=== PATIENT | male | born 1975 | race Caucasian/White ===

== ENCOUNTER 2017-12-14 14:35 | Emergency (ER) | payer MEDICAID ==
--- NOTE | 2017-12-14 15:57 | EDM.PDOC ---
ED HPI GENERAL MEDICAL PROBLEM - General Chief Complaint: Genitourinary Problem Stated Complaint: TROUBLE URINATING Time Seen by Provider: 12/14/17 15:00 Source of Information: Reports: Patient History Limitations: Reports: No Limitations - History of Present Illness INITIAL COMMENTS - FREE TEXT/NARRATIVE: 42 y/o M with hx prior urinary outlet obstruction presents with inability to urinate for over a day. Has suprapubic pain. No additional complaint. No provoking factor. Had similar episode previously which resolved after attempted (but unsuccessful) gross placement at outside clinic. Has never had indwelling catheter. No fever or recent illness. No vomiting/diarrhea. No dysuria/ hematuria this week. Hasn't seen a urologist previously. Bladder Pain Score (Numeric/FACES): 8 - Related Data Allergies Allergy/AdvReac Type Severity Reaction Status Date / Time No Known Allergies Allergy Verified 12/14/17 14:49 Home Meds: Home Meds Tamsulosin [Flomax] 0.4 mg PO DAILY 12/14/17 [History] Past Medical History Genitourinary History: Reports: Retention, Urinary Social & Family History - Tobacco Use Smoking Status *Q: Never Smoker - Caffeine Use Caffeine Use: Reports: Soda - Recreational Drug Use Recreational Drug Use: No ED ROS GENERAL - Review of Systems Review Of Systems: See Below Constitutional: Denies: Fever HEENT: Reports: No Symptoms Respiratory: Denies: Shortness of Breath Cardiovascular: Denies: Chest Pain Endocrine: Reports: No Symptoms GI/Abdominal: Reports: Abdominal Pain : Reports: Urinary Retention Musculoskeletal: Reports: No Symptoms Neurological: Reports: No Symptoms ED EXAM, RENAL/ - Physical Exam Exam: See Below Exam Limited By: No Limitations General Appearance: Alert, Mild Distress Eye Exam: Bilateral Eye: Normal Inspection Ears: Normal External Exam Nose: Normal Inspection Throat/Mouth: Normal Inspection Head: Atraumatic, Normocephalic Neck: Normal Inspection, Supple, Non-Tender Respiratory/Chest: No Respiratory Distress, Lungs Clear, Normal Breath Sounds Cardiovascular: Normal Peripheral Pulses, Regular Rate, Rhythm, No Murmur GI/Abdominal: Soft, Other (suprapubic TTP, otherwise nontender, no guarding) Back Exam: No: CVA Tenderness (L), CVA Tenderness (R) Extremities: Normal Inspection Neurological: Alert, Oriented, Normal Cognition Psychiatric: Normal Affect, Normal Mood Skin Exam: Warm, Dry, Intact, Normal Color, No Rash Course - Vital Signs Last Recorded V/S: Last Vital Signs Temp 36.3 C 12/14/17 14:45 Pulse 126 H 12/14/17 14:45 Resp 16 12/14/17 14:45 BP 115/87 12/14/17 14:45 Pulse Ox 97 12/14/17 14:45 - Orders/Labs/Meds Orders: Active Orders 24 hr Category Date Time Status Communication Order [RC] STAT Care 12/14/17 15:25 Active Urinary Catheter Assessment [RC] ASDIRECTED Care 12/14/17 15:05 Inactive Labs: Laboratory Tests 12/14/17 12/14/17 12/14/17 Range/Units 15:20 15:20 16:00 WBC 4.91 (4.23-9.07) K/mm3 RBC 5.08 (4.63-6.08) M/mm3 Hgb 17.0 (13.7-17.5) gm/L Hct 47.3 (40.1-51.0) % MCV 93.1 H (79.0-92.2) fl MCH 33.5 H (25.7-32.2) pg MCHC 35.9 H (32.2-35.5) g/dl RDW Std Deviation 43.4 (35.1-43.9) fL Plt Count 226 (163-337) K/mm3 MPV 9.6 (9.4-12.3) fl Neut % (Auto) 57.5 (34.0-67.9) % Lymph % (Auto) 24.2 (21.8-53.1) % [place] % (Auto) 7.5 (5.3-12.2) % Eos % (Auto) 9.6 H (0.8-7.0) Baso % (Auto) 1.0 (0.1-1.2) % Neut # (Auto) 2.82 (1.78-5.38) K/mm3 Lymph # (Auto) 1.19 L (1.32-3.57) K/mm3 [place] # (Auto) 0.37 (0.30-0.82) K/mm3 Eos # (Auto) 0.47 (0.04-0.54) K/mm3 Baso # (Auto) 0.05 (0.01-0.08) K/mm3 Sodium 140 (136-145) mEq/L Potassium 4.3 (3.5-5.1) mEq/L Chloride 104 (98-107) mEq/L Carbon Dioxide 28 (21-32) mEq/L Anion Gap 12.3 (5-15) BUN 14 (7-18) mg/dL Creatinine 1.5 H (0.7-1.3) mg/dL Est Cr Clr Drug Dosing 66.93 mL/min Estimated GFR (MDRD) 51 (>60) mL/min BUN/Creatinine Ratio 9.3 L (14-18) Glucose 107 H (74-106) mg/dL Calcium 8.9 (8.5-10.1) mg/dL Total Bilirubin 0.7 (0.2-1.0) mg/dL AST 11 L (15-37) U/L ALT 27 (16-63) U/L Alkaline Phosphatase 83 (46-116) U/L Total Protein 7.1 (6.4-8.2) g/dl Albumin 3.9 (3.4-5.0) g/dl Globulin 3.2 gm/dL Albumin/Globulin Ratio 1.2 (1-2) Urine Color Yellow (Yellow) Urine Appearance Clear (Clear) Urine pH 6.0 (5.0-8.0) Ur Specific [place] 1.025 (1.005-1.030) Urine Protein 1+ H (Negative) Urine Glucose (UA) Negative (Negative) Urine Ketones Negative (Negative) Urine Occult Blood Negative (Negative) Urine Nitrite Negative (Negative) Urine Bilirubin Negative (Negative) Urine Urobilinogen 1.0 (0.2-1.0) Ur Leukocyte Esterase Negative (Negative) Urine RBC 0-5 (0-5) /hpf Urine WBC 5-10 H (0-5) /hpf Ur Epithelial Cells 0-5 (0-5) /hpf Urine Bacteria Not seen (FEW) /hpf Urine Mucus Not seen (FEW) /hpf - Re-Assessments/Exams Free Text/Narrative Re-Assessment/Exam: 12/14/17 17:50 Feels much better after straight cath. Refuses gross. Wants to go home. Discussed return precautions for any ongoing difficulty urinating. Labs show creatinine 1.5, UA not infected. Recommended f/u with urology this week adn also PCP f/u. 12/14/17 17:50 Departure - Departure Time of Disposition: 16:28 Disposition: Home, Self-Care 01 Clinical Impression: Acute urinary obstruction - Discharge Information Instructions: Acute Urinary Retention, Male, [id number] Referrals: PCP,None [Primary Care Provider] - Forms: ED Department Discharge Additional Instructions: 1. Continue to take tamsulosin (flomax) 2. Follow up with Dr. Mendez this week for further care 3. Return to the ED if you have another episode of not being able to urinate, if you have fever, abdominal pain, or any other concerning symptoms - My Orders Last 24 Hours: My Active Orders 12/14/17 15:05 Urinary Catheter Assessment [RC] ASDIRECTED 12/14/17 15:25 Communication Order [RC] STAT - Assessment/Plan Last 24 Hours: My Active Orders 12/14/17 15:05 Urinary Catheter Assessment [RC] ASDIRECTED 12/14/17 15:25 Communication Order [RC] STAT
== END 2017-12-14 16:40 | disposition home or self-care (01) ==
LOC: JD.ED 14:35
DX: N13.9 Obstructive and reflux uropathy, unspecified (principal); Z79.899 Other long term (current) drug therapy
CPT/HCPCS: 36415; 51701; 80053; 81001; 85025; 99283; 99283-25

== ENCOUNTER 2018-02-14 14:17 | Emergency (ER) | payer MEDICAID ==
[2018-02-14] MEDS ORDERED: Ondansetron 4 MG/2 ML SDV IVPUSH ONE (14:30)
[2018-02-14] MEDS ORDERED: Sodium Chloride 0.9% 1,000 ML IV STA (14:30)
[2018-02-14] MEDS ORDERED: Sodium Chloride 0.9% 10 ML Syringe FLUSH PRN ×2 (14:30→16:37)
[2018-02-14] MEDS ORDERED: HYDROmorphone 0.5 MG/0.5 ML SYRINGE IVPUSH ONE (14:31)
--- NOTE | 2018-02-14 14:39 | EDM.PDOC ---
ED HPI GENERAL MEDICAL PROBLEM - General Chief Complaint: Gastrointestinal Problem Stated Complaint: [facility] Time Seen by Provider: 02/14/18 14:22 Source of Information: Reports: Patient, EMS History Limitations: Reports: No Limitations - History of Present Illness INITIAL COMMENTS - FREE TEXT/NARRATIVE: The patient presents by [facility] for nausea, vomiting, generalized abdominal pain, rectal pain and diarrhea. This all started last week with abdominal pain. He saw Dr Garcia and he did some x-rays and he was constipated. The patient has been doing a stool softener and he did an enema yesterday. He has had cramping and diarrhea and now rectal pain. He vomited yesterday. He has generalized weakness. He has no fever but he does have chills. He has no chest pain or shortness of breath. He had a cholecystectomy 3 years ago. He still has his appendix. He has been having trouble urinating lately and he is on flomax. Onset: Gradual Duration: Day(s): (4) Location: Reports: Abdomen Quality: Reports: Other (Cramping) Severity: Moderate Improves with: Reports: None Worsens with: Reports: None Associated Symptoms: Reports: Fever/Chills, Loss of Appetite, Nausea/Vomiting. Denies: Confusion, Chest Pain, Cough, Headaches, Shortness of Breath Rectal Pain Score (Numeric/FACES): 6 - Related Data Allergies Allergy/AdvReac Type Severity Reaction Status Date / Time No Known Allergies Allergy Verified 02/14/18 14:23 Home Meds: Home Meds Tamsulosin [Flomax] 0.4 mg PO DAILY 12/14/17 [History] KCl/Na Sulf,Bicarb,Cl/PEG 3351 [GoLytely] 4 oz PO BID #1 bottle 02/14/18 [Rx] Metoclopramide HCl [Reglan] 10 mg PO Q6HR PRN #20 tablet 02/14/18 [Rx] Past Medical History Genitourinary History: Reports: Retention, Urinary Social & Family History - Caffeine Use Caffeine Use: Reports: Soda ED ROS GENERAL - Review of Systems Review Of Systems: See Below Constitutional: Reports: Chills, Malaise, Weakness, Fatigue. Denies: Fever HEENT: Reports: No Symptoms Respiratory: Reports: No Symptoms Cardiovascular: Reports: No Symptoms Endocrine: Reports: Fatigue GI/Abdominal: Reports: Abdominal Pain, Diarrhea, Nausea, Vomiting, Other ( Rectal pain). Denies: Black Stool, Bloody Stool : Reports: No Symptoms Musculoskeletal: Reports: No Symptoms ED EXAM, GI/ABD - Physical Exam Exam: See Below Exam Limited By: No Limitations General Appearance: Alert, No Apparent Distress Ears: Normal External Exam Nose: Normal Inspection Throat/Mouth: Other (Dry mucus membranes) Head: Atraumatic, Normocephalic Neck: Normal Inspection Respiratory/Chest: No Respiratory Distress, Lungs Clear, Normal Breath Sounds Cardiovascular: Regular Rate, Rhythm, No Edema, No Murmur GI/Abdominal Exam: Soft, No Organomegaly, No Mass, Tender (Mild tenderness to the lower abdomen) Course - Vital Signs Last Recorded V/S: Last Vital Signs Temp 100.1 F 02/14/18 14:17 Pulse 91 02/14/18 15:23 Resp 16 02/14/18 15:23 BP 108/76 02/14/18 15:23 Pulse Ox 91 L 02/14/18 15:23 - Orders/Labs/Meds Orders: Active Orders 24 hr Category Date Time Status Enema [RC] ASDIRECTED Care 02/14/18 17:50 Active Insert Gross Catheter [Insert Urinary Catheter] [OM.PC] Care 02/14/18 15:10 Ordered Q24H Peripheral IV Care [RC] . DIRECTED Care 02/14/18 14:30 Active Urinary Catheter Assessment [RC] ASDIRECTED Care 02/14/18 15:10 Active Abdomen Pelvis w Cont [CT] Stat Exams 02/14/18 14:30 Taken CULTURE URINE [RM] Stat Lab 02/14/18 15:15 Received UA W/MICROSCOPIC [URIN] Stat Lab 02/14/18 15:15 Ordered Sodium Chloride 0.9% [Saline Flush] Med 02/14/18 14:30 Active 10 ml FLUSH ASDIRECTED PRN Sodium Chloride 0.9% [Saline Flush] Med 02/14/18 16:37 Active 10 ml FLUSH ONETIME PRN ED Antiemetic Medication Reflex [OM.PC] Stat Oth 02/14/18 14:30 Ordered Peripheral IV Insertion Adult [OM.PC] Stat Oth 02/14/18 14:30 Ordered Medication Orders Sodium Chloride (Saline Flush) 10 ml FLUSH ASDIRECTED PRN PRN Reason: Keep Vein Open Last Admin: 02/14/18 14:50 Dose: 10 ml Sodium Chloride (Saline Flush) 10 ml FLUSH ONETIME PRN PRN Reason: IV FLUSH Last Admin: 02/14/18 16:51 Dose: 10 ml Labs: Laboratory Tests 02/14/18 02/14/18 02/14/18 Range/Units 15:10 15:10 15:15 WBC 8.07 (4.23-9.07) K/mm3 RBC 5.11 (4.63-6.08) M/mm3 Hgb 17.0 (13.7-17.5) gm/L Hct 46.9 (40.1-51.0) % MCV 91.8 (79.0-92.2) fl MCH 33.3 H (25.7-32.2) pg MCHC 36.2 H (32.2-35.5) g/dl RDW Std Deviation 42.1 (35.1-43.9) fL Plt Count 225 (163-337) K/mm3 MPV 10.0 (9.4-12.3) fl Neut % (Auto) 81.6 H (34.0-67.9) % Lymph % (Auto) 6.2 L (21.8-53.1) % [place] % (Auto) 11.5 (5.3-12.2) % Eos % (Auto) 0.5 L (0.8-7.0) Baso % (Auto) 0.1 (0.1-1.2) % Neut # (Auto) 6.58 H (1.78-5.38) K/mm3 Lymph # (Auto) 0.50 L (1.32-3.57) K/mm3 [place] # (Auto) 0.93 H (0.30-0.82) K/mm3 Eos # (Auto) 0.04 (0.04-0.54) K/mm3 Baso # (Auto) 0.01 (0.01-0.08) K/mm3 Manual Slide Review Normal smear Sodium 135 L (136-145) mEq/L Potassium 3.7 (3.5-5.1) mEq/L Chloride 104 (98-107) mEq/L Carbon Dioxide 19 L (21-32) mEq/L Anion Gap 15.7 H (5-15) BUN 15 (7-18) mg/dL Creatinine 1.2 (0.7-1.3) mg/dL Est Cr Clr Drug Dosing 83.67 mL/min Estimated GFR (MDRD) > 60 (>60) mL/min BUN/Creatinine Ratio 12.5 L (14-18) Glucose 125 H (74-106) mg/dL Calcium 8.2 L (8.5-10.1) mg/dL Total Bilirubin 2.1 H (0.2-1.0) mg/dL AST 17 (15-37) U/L ALT 25 (16-63) U/L Alkaline Phosphatase 82 (46-116) U/L Total Protein 6.5 (6.4-8.2) g/dl Albumin 3.4 (3.4-5.0) g/dl Globulin 3.1 gm/dL Albumin/Globulin Ratio 1.1 (1-2) Lipase 62 L (73-393) U/L Urine Color [place] H (Yellow) Urine Appearance Clear (Clear) Urine pH 5.5 (5.0-8.0) Ur Specific [place] 1.025 (1.005-1.030) Urine Protein 2+ H (Negative) Urine Glucose (UA) Trace H (Negative) Urine Ketones 1+ H (Negative) Urine Occult Blood Negative (Negative) Urine Nitrite Positive H (Negative) Urine Bilirubin 3+ H (Negative) Urine Urobilinogen >=8.0 H (0.2-1.0) Ur Leukocyte Esterase Negative (Negative) Urine RBC Not seen (0-5) /hpf Urine WBC 0-5 (0-5) /hpf Ur Epithelial Cells 0-5 (0-5) /hpf Amorphous Sediment Few H (NOT SEEN) /hpf Urine Bacteria Few (FEW) /hpf Hyaline Casts 0-5 (0-5) /lpf Urine Mucus Few (FEW) /hpf Meds: Medications Generic Name Dose Route Start Last Admin Trade Name Freq PRN Reason Stop Dose Admin Sodium Chloride 10 ml 02/14/18 14:30 02/14/18 14:50 Saline Flush FLUSH 10 ml ASDIRECTED PRN Administration Keep Vein Open Sodium Chloride 10 ml 02/14/18 16:37 02/14/18 16:51 Saline Flush FLUSH 10 ml ONETIME PRN Administration IV FLUSH Discontinued Medications Generic Name Dose Route Start Last Admin Trade Name Freq PRN Reason Stop Dose Admin Diatrizoate Meglum/Diatrizoate Sod 120 ml 02/14/18 16:37 02/14/18 16:51 Gastrografin 37% PO 02/14/18 16:38 90 ml ONETIME ONE Administration Hydromorphone HCl 1 mg 02/14/18 14:31 02/14/18 14:55 Dilaudid IVPUSH 02/14/18 14:32 1 mg ONETIME ONE Administration Sodium Chloride 1,000 mls @ 1,000 mls/hr 02/14/18 14:30 02/14/18 14:55 Normal Saline IV 02/14/18 15:29 1,000 mls/hr .BOLUS STA Administration Sodium Chloride 1,000 mls @ 1,000 mls/hr 02/14/18 15:33 Normal Saline IV 02/14/18 16:32 ONETIME ONE Iopamidol 100 ml 02/14/18 16:37 02/14/18 16:51 Isovue-300 (61%) IVPUSH 02/14/18 16:38 100 ml ONETIME ONE Administration Ondansetron HCl 4 mg 02/14/18 14:30 02/14/18 14:57 Zofran IVPUSH 02/14/18 14:31 4 mg ONETIME ONE Administration - Re-Assessments/Exams Free Text/Narrative Re-Assessment/Exam: 02/14/18 14:39 I ordered an IV NS 1L bolus, zofran 4mg IV, dilaudid 1mg IV, labs, UA and a CT of his abdomen and pelvis for lower abdominal pain. 02/14/18 18:02 His CBC looks good with a normal WBC. His Na is a little low at 135. His anion gap is elevated at 15.7. His glucose is 125. His total bili is 2.1. His lipase is low at 62. He was retaining about 1L of urine. We put a gross cath in and his UA was positive for nitrites but no WBCs or bacteria. His CT shows moderate to severe fecal stasis, mild colitis involving the rectosigmoid colon, and no free air or gross visceromegaly. I called Dr Flores our general surgeon and he recommended we do an enema here and then send him home with the [facility] for colonoscopy. He recommends 4 ounces 2 times per day for a week or until gone. He also wanted the patient to do a fleets enema every other day. 02/14/18 18:54 He had some output but it was mostly watery with stool. I will discharge him home with some golytly and fleets enemas. Departure - Departure Time of Disposition: 18:55 Disposition: Home, Self-Care 01 Condition: Good Clinical Impression: Constipation Qualifiers: Constipation type: other constipation type Qualified Code(s): K59.09 - Other constipation - Discharge Information Prescriptions: Metoclopramide HCl [Reglan] 10 mg PO Q6HR PRN #20 tablet PRN Reason: Nausea/Vomiting KCl/Na Sulf,Bicarb,Cl/PEG 3351 [GoLytely] 4 oz PO BID #1 bottle Referrals: Jb Garcia MD [Primary Care Provider] - 3 Days Forms: ED Department Discharge Additional Instructions: Drink plenty of fluids. Take the golytly 4 ounces or 1/2 cup 2 times per day for 1 week and fleets enemas every other day. Please return if you are worse. - My Orders Last 24 Hours: My Active Orders 02/14/18 14:30 Peripheral IV Care [RC] . DIRECTED Abdomen Pelvis w Cont [CT] Stat Sodium Chloride 0.9% [Saline Flush] 10 ml FLUSH ASDIRECTED PRN ED Antiemetic Medication Reflex [OM.PC] Stat Peripheral IV Insertion Adult [OM.PC] Stat 02/14/18 15:10 Insert Gross Catheter [Insert Urinary Catheter] [OM.PC] Q24H Urinary Catheter Assessment [RC] ASDIRECTED 02/14/18 15:15 CULTURE URINE [] Stat UA W/MICROSCOPIC [URIN] Stat 02/14/18 16:37 Sodium Chloride 0.9% [Saline Flush] 10 ml FLUSH ONETIME PRN 02/14/18 17:50 Enema [RC] ASDIRECTED - Assessment/Plan Last 24 Hours: My Active Orders 02/14/18 14:30 Peripheral IV Care [RC] . DIRECTED Abdomen Pelvis w Cont [CT] Stat Sodium Chloride 0.9% [Saline Flush] 10 ml FLUSH ASDIRECTED PRN ED Antiemetic Medication Reflex [OM.PC] Stat Peripheral IV Insertion Adult [OM.PC] Stat 02/14/18 15:10 Insert Gross Catheter [Insert Urinary Catheter] [OM.PC] Q24H Urinary Catheter Assessment [RC] ASDIRECTED 02/14/18 15:15 CULTURE URINE [RM] Stat UA W/MICROSCOPIC [URIN] Stat 02/14/18 16:37 Sodium Chloride 0.9% [Saline Flush] 10 ml FLUSH ONETIME PRN 02/14/18 17:50 Enema [RC] ASDIRECTED
[2018-02-14] MEDS ORDERED: Sodium Chloride 0.9% 1,000 ML IV ONE (15:33)
[2018-02-14] MEDS ORDERED: Iopamidol 612 MG/ML 100 ML Bottle IVPUSH ONE (16:37)
[2018-02-14] MEDS ORDERED: Diatrizoate Meglumine/Diatrizoate Sodium 37% 120 ML Bottle PO ONE (16:37)
--- NOTE | 2018-02-16 08:31 | CT ---
CT abdomen and pelvis Technique: Multiple axial sections were obtained from above the dome of the diaphragm inferiorly through the pubic symphysis. Oral contrast and intravenous contrast was utilized. Comparison: No prior abdominal imaging. Findings: Visualized lung bases show nothing acute. Liver shows no focal parenchymal abnormality. Surgical clips are seen from prior cholecystectomy. Spleen appears within normal limits. Adrenal glands show no nodule. Kidneys show symmetric contrast enhancement without hydronephrosis or mass. Pancreas is within normal limits. Aorta shows no aneurysmal dilatation. No retroperitoneal adenopathy or mesenteric abnormalities are seen. Appendix appears normal. Increased stool is identified within the rectosigmoid region. Lesser stool is seen throughout the other portions of the colon. There is mild wall thickening being seen within the sigmoid colon which may relate to the increased stool and represents a mild colitis. No free fluid or surrounding inflammatory change is seen. Cruz catheter is identified within the bladder. Bone window settings were reviewed which show vacuum phenomena within the L4-L5 and L5-S1 discs. Small fat-containing umbilical hernia is seen. Impression: 1. Increased stool within the rectosigmoid region. Bowel wall thickening also seen in this area which may represent a colitis from the increased stool. 2. Lesser stool throughout other portions of the colon. 3. Other incidental findings. Nothing else acute is seen. Diagnostic code #3 I agree with preliminary report from [facility], finalized at 02/14/18, 6:31 PM Central Time
== END 2018-02-14 19:25 | disposition home or self-care (01) ==
LOC: SUPCPDRO 14:17 → JD.ED 14:17
DX: K59.09 Other constipation (principal); Z79.899 Other long term (current) drug therapy
CPT/HCPCS: 36415; 51702; 74177; 80053; 81001; 83690; 85025; 87086; 96361; 96374; 96375; 99285; J1170; J2405; J7040; J7050; Q9963; Q9967; 99284

== ENCOUNTER 2020-06-25 14:18 | Emergency (ER) | payer MEDICAID ==
[2020-06-25] MEDS ORDERED: Lidocaine 2% Jelly 10 ML Urojet MUCMEM ONE (15:08)
--- NOTE | 2020-06-25 15:25 | EDM.PDOC ---
ED HPI GENERAL MEDICAL PROBLEM - General Chief Complaint: Genitourinary Problem Stated Complaint: UNABLE TO VOID Time Seen by Provider: 06/25/20 14:32 Source of Information: Reports: Patient History Limitations: Reports: No Limitations - History of Present Illness INITIAL COMMENTS - FREE TEXT/NARRATIVE: Patient is a 45-year-old male presenting to the emergency department with a complaint of being unable to void. States last time he voided was last evening. He has had problems with this in the past and states it that if we straight cath him, he will be good for 3 months. His primary care provider, Dr. Lenny Burgess, is in the process of making arrangements for him to get his urethra "cleaned out ". He does not have an appointment scheduled with urology currently. He is currently taking Flomax. Denies any night pain, fever, chills, nausea, or vomiting. Bladder Pain Score (Numeric/FACES): 6 - Related Data Allergies Allergy/AdvReac Type Severity Reaction Status Date / Time Dairy Products Allergy Severe Hives Verified 06/25/20 14:31 Home Meds: Home Meds Sennosides/Docusate Sodium [Senokot-S Tablet] 2 each PO BEDTIME 30 Days #60 tablet 08/24/18 [Rx] Tamsulosin [Flomax] 0.4 mg PO BIDPC 90 Days #60 cap.er 08/24/18 [Rx] polyethylene glycoL 3350 [MiraLAX] 17 gm PO BID 90 Days #60 packet 08/24/18 [Rx] Past Medical History Cardiovascular History: Reports: None Respiratory History: Reports: None Gastrointestinal History: Reports: Chronic Constipation, GERD Genitourinary History: Reports: Prostate Disorder, Retention, Urinary Musculoskeletal History: Reports: Back Pain, Chronic, Other (See Below) Other Musculoskeletal History: chronic knee pain Neurological History: Reports: Other (See Below) Other Neuro History: states "my marbles are not all there" Psychiatric History: Reports: Other (See Below) Other Psychiatric History: difficulty sleeping - Past Surgical History GI Surgical History: Reports: Cholecystectomy Social & Family History - Family History Family Medical History: Noncontributory Cardiac: Reports: Other (See Below) - Tobacco Use Smoking Status *Q: Former Smoker Years of Tobacco use: 25 Used Tobacco, but Quit: No - Caffeine Use Caffeine Use: Reports: Soda - Recreational Drug Use Recreational Drug Use: No ED ROS GENERAL - Review of Systems Review Of Systems: Comprehensive ROS is negative, except as noted in HPI. ED EXAM, RENAL/ - Physical Exam Exam: See Below General Appearance: Alert, WD/WN, No Apparent Distress Respiratory/Chest: No Respiratory Distress, Lungs Clear, Normal Breath Sounds, No Accessory Muscle Use, Chest Non-Tender Cardiovascular: Normal Peripheral Pulses, Regular Rate, Rhythm, No Edema, No Gallop, No JVD, No Murmur, No Rub GI/Abdominal: Normal Bowel Sounds, Soft, No Organomegaly, No Distention, No Abnormal Bruit, No Mass, Tender (Suprapubic fullness and tenderness.) Neurological: Alert, Oriented, CN II-XII Intact, Normal Cognition, Normal Gait, Normal Reflexes, No Motor/Sensory Deficits Psychiatric: Normal Affect, Normal Mood Course - Vital Signs Last Recorded V/S: Last Vital Signs Temp 96.8 F L 06/25/20 16:05 Pulse 108 H 06/25/20 16:05 Resp 16 06/25/20 16:05 BP 111/78 06/25/20 16:05 Pulse Ox 96 06/25/20 16:05 - Orders/Labs/Meds Orders: Active Orders 24 hr Category Date Time Status Insert Urinary Catheter [OM.PC] ONETIME Care 06/25/20 14:45 Ordered Labs: Laboratory Tests 06/25/20 06/25/20 06/25/20 Range/Units 14:54 14:54 15:15 WBC 5.47 (4.23-9.07) K/mm3 RBC 5.16 (4.63-6.08) M/mm3 Hgb 17.5 D (13.7-17.5) gm/dl Hct 50.0 (40.1-51.0) % MCV 96.9 H (79.0-92.2) fl MCH 33.9 H (25.7-32.2) pg MCHC 35.0 (32.2-35.5) g/dl RDW Std Deviation 46.4 H (35.1-43.9) fL Plt Count 218 (163-337) K/mm3 MPV 9.5 (9.4-12.3) fl Neut % (Auto) 73.9 H (34.0-67.9) % Lymph % (Auto) 14.6 L (21.8-53.1) % [place] % (Auto) 6.0 (5.3-12.2) % Eos % (Auto) 4.8 (0.8-7.0) Baso % (Auto) 0.5 (0.1-1.2) % Neut # (Auto) 4.04 (1.78-5.38) K/mm3 Lymph # (Auto) 0.80 L (1.32-3.57) K/mm3 [place] # (Auto) 0.33 (0.30-0.82) K/mm3 Eos # (Auto) 0.26 (0.04-0.54) K/mm3 Baso # (Auto) 0.03 (0.01-0.08) K/mm3 Sodium 139 (136-145) mEq/L Potassium 4.0 (3.5-5.1) mEq/L Chloride 104 (98-107) mEq/L Carbon Dioxide 26 (21-32) mEq/L Anion Gap 13.0 (5-15) BUN 10 (7-18) mg/dL Creatinine 1.6 H (0.7-1.3) mg/dL Est Cr Clr Drug Dosing 58.93 mL/min Estimated GFR (MDRD) 47 (>60) mL/min BUN/Creatinine Ratio 6.3 L (14-18) Glucose 107 H (74-106) mg/dL Calcium 8.6 (8.5-10.1) mg/dL Total Bilirubin 1.4 H (0.2-1.0) mg/dL AST 12 L (15-37) U/L ALT 24 (16-63) U/L Alkaline Phosphatase 99 (46-116) U/L Total Protein 7.0 (6.4-8.2) g/dl Albumin 3.8 (3.4-5.0) g/dl Globulin 3.2 gm/dL Albumin/Globulin Ratio 1.2 (1-2) Urine Color [place] H (Yellow) Urine Appearance Cloudy H (Clear) Urine pH 7.5 (5.0-8.0) Ur Specific [place] 1.020 (1.005-1.030) Urine Protein Negative (Negative) Urine Glucose (UA) Negative (Negative) Urine Ketones Negative (Negative) Urine Occult Blood 3+ H (Negative) Urine Nitrite Negative (Negative) Urine Bilirubin Negative (Negative) Urine Urobilinogen 1.0 (0.2-1.0) Ur Leukocyte Esterase Negative (Negative) Urine RBC >100 H (0-5) /hpf Urine WBC 0-5 (0-5) /hpf Ur Squamous Epith Cells 0-5 (0-5) /hpf Urine Bacteria Not seen (FEW) /hpf Urine Mucus Not seen (FEW) /hpf Meds: Medications Discontinued Medications Generic Name Dose Route Start Last Admin Trade Name Cuco PRN Reason Stop Dose Admin Lidocaine HCl 10 ml 06/25/20 15:08 06/25/20 15:12 Xylocaine 2% Jelly MUCMEM 06/25/20 15:09 10 ml ONETIME ONE Administration - Re-Assessments/Exams Free Text/Narrative Re-Assessment/Exam: Patient is a 45-year-old male presenting to the emergency department with complaints of being unable to void. Patient is adamant that he will not go home with an indwelling catheter that he just needs to be straight cath. I will have nursing staff attempt to straight cath. Have also ordered a CBC, CMP, and urinalysis. 06/25/20 15:24 Nursing staff reports being unable to pass the straight catheter through his prostate. State all that returns is a small amount of blood on the tip of the catheter. I ordered Urojet and was able to pass a 14 Czech indwelling catheter. Initially there was some blood-tinged urine return, however it is now flowing clear. Patient continues to refuse to go home with an indwelling catheter. 06/25/20 15:44 Hematology was significant for creatinine elevated at 1.6, total bili 1.4. Urinalysis showed 3+ occult blood and greater than 100 RBCs. It was negative for infection. Patient continues to be adamant that he will not go home with a urinary catheter. We will remove the catheter now. Recommend follow-up with his primary care provider, Dr. Lenny Burgess, to have his lab values rechecked in a few days and ensure that the creatinine comes down. I will also send referral to Dr. Simpson as he is not sure if he has had a urology referral this far. He is already on Flomax. Discharge instructions as documented. 06/25/20 16:00 I was notified by JAKOB Pantoja that she was able to convince the pt to leave the catheter in place and follow-up in the clinic. Pt was discharged with the gross catheter to a leg bag. Departure - Departure Time of Disposition: 15:45 Disposition: Home, Self-Care 01 Condition: Good Clinical Impression: Urinary retention - Discharge Information *PRESCRIPTION DRUG MONITORING PROGRAM REVIEWED*: No *COPY OF PRESCRIPTION DRUG MONITORING REPORT IN PATIENT JAMIN: No Instructions: Acute Urinary Retention, Male, [id number] Referrals: Jb Garcia MD [Primary Care Provider] - Mario Grewal MD [Ordering Only Provider] - Forms: ED Department Discharge Additional Instructions: You were seen in the emergency department today for inability to pass your urine. This, we were able to put a catheter in to drain your urine. It was recommended that you keep this catheter as if the prostate becomes further inflamed, we will may not be able to put a catheter in in the future if you are unable to void. You declined this. Recommend follow-up with your primary care provider in the next few days to have your labs rechecked as your kidney function was slightly reduced in the emergency department today. Also recommend that you call to schedule an appointment with urologist. A referral has been sent to Dr. Grewal. The number is listed below. Return to the ER as needed. Sepsis Event Note (ED) - Evaluation Sepsis Screening Result: No Definite Risk - Focused Exam Vital Signs: Vital Signs Temp Pulse Resp BP Pulse Ox 06/25/20 16:05 96.8 F L 108 H 16 111/78 96 06/25/20 14:38 96.8 F L 108 H 20 116/72 97 - My Orders Last 24 Hours: My Active Orders 06/25/20 14:45 Insert Urinary Catheter [OM.PC] ONETIME - Assessment/Plan Last 24 Hours: My Active Orders 06/25/20 14:45 Insert Urinary Catheter [OM.PC] ONETIME
== END 2020-06-25 16:05 | disposition home or self-care (01) ==
LOC: JD.ED 14:18
DX: R33.9 Retention of urine, unspecified (principal); Z87.891 Personal history of nicotine dependence; Z90.49 Acquired absence of other specified parts of digestive tract; Z91.011 Allergy to milk products
CPT/HCPCS: 36415; 51702; 80053; 81001; 85025; 99282; 99283-25

== ENCOUNTER 2020-06-27 10:52 | Emergency (ER) | payer MEDICAID ==
--- NOTE | 2020-06-27 11:47 | EDM.PDOC ---
ED HPI GENERAL MEDICAL PROBLEM - General Chief Complaint: Genitourinary Problem Stated Complaint: CATHETER ISSUES Time Seen by Provider: 06/27/20 11:29 Source of Information: Reports: Patient, RN Notes Reviewed History Limitations: Reports: No Limitations - History of Present Illness INITIAL COMMENTS - FREE TEXT/NARRATIVE: Patient is a 45-year-old male who presents to the ER for his Cruz catheter problem. Patient notes he was seen in this ER 2 days ago, and had a Cruz catheter placed for acute urinary retention. The patient states that since then, he has had discomfort at the site, and states he is not really been able to sleep much. He does note that it is draining appropriately. He has not noticed any cloudiness of the urine, or any blood within the urine itself. There is some bloody drainage coming from around the tip of the penis onto the catheter itself. Other than this, he states that he is quite busy over the next few days, and will not have time to deal with the pain and discomfort, so he came to the ER to have his Cruz catheter removed. He was not able to follow-up with urology at this time either. He denies any fevers or chills, cough or joel rtness of breath, nausea/vomiting/diarrhea. Penis Pain Score (Numeric/FACES): 9 - Related Data Allergies Allergy/AdvReac Type Severity Reaction Status Date / Time Dairy Products Allergy Severe Hives Verified 06/27/20 11:19 Home Meds: Home Meds Sennosides/Docusate Sodium [Senokot-S Tablet] 2 each PO BEDTIME 30 Days #60 tablet 08/24/18 [Rx] Tamsulosin [Flomax] 0.4 mg PO BIDPC 90 Days #60 cap.er 08/24/18 [Rx] polyethylene glycoL 3350 [MiraLAX] 17 gm PO BID 90 Days #60 packet 08/24/18 [Rx] Past Medical History Cardiovascular History: Reports: None Respiratory History: Reports: None Gastrointestinal History: Reports: Chronic Constipation, GERD Genitourinary History: Reports: Prostate Disorder, Retention, Urinary Musculoskeletal History: Reports: Back Pain, Chronic, Other (See Below) Other Musculoskeletal History: chronic knee pain Neurological History: Reports: Other (See Below) Other Neuro History: states "my marbles are not all there" Psychiatric History: Reports: Other (See Below) Other Psychiatric History: difficulty sleeping - Past Surgical History GI Surgical History: Reports: Cholecystectomy Social & Family History - Family History Family Medical History: Noncontributory Cardiac: Reports: Other (See Below) - Tobacco Use Smoking Status *Q: Former Smoker Used Tobacco, but Quit: Yes Month/Year Tobacco Last Used: 1999 - Caffeine Use Caffeine Use: Reports: None - Recreational Drug Use Recreational Drug Use: No ED ROS GENERAL - Review of Systems Review Of Systems: Comprehensive ROS is negative, except as noted in HPI. ED EXAM, RENAL/ - Physical Exam Exam: See Below Exam Limited By: No Limitations General Appearance: Alert, WD/WN, No Apparent Distress Respiratory/Chest: No Respiratory Distress, Lungs Clear, Normal Breath Sounds, No Accessory Muscle Use, Chest Non-Tender Cardiovascular: Normal Peripheral Pulses, Regular Rate, Rhythm, No Murmur (Male) Exam: Urethral Discharge (there is some bloody discharge from around the catheter at the tip of the penis. otherwise normal anatomy noted.) Rectal (Males) Exam: Deferred Neurological: Alert, Oriented, Normal Cognition, No Motor/Sensory Deficits Psychiatric: Normal Affect, Normal Mood Skin Exam: Warm, Dry, Intact, Normal Color, No Rash Course - Vital Signs Last Recorded V/S: Last Vital Signs Temp 97.6 F 06/27/20 11:16 Pulse 104 H 06/27/20 11:16 Resp 20 06/27/20 11:16 BP 127/82 06/27/20 11:16 Pulse Ox 98 06/27/20 11:16 - Re-Assessments/Exams Free Text/Narrative Re-Assessment/Exam: 06/27/20 11:55 Patient presents to the ED for the evaluation of his Cruz catheter issue. I did pull the Cruz catheter, and I directed him that if he has not peed in 8 to 12 hours, that he will need to come back to the ER for placement of the catheter again, he does agree to comply with these instructions. Discharge instructions as documented. Departure - Departure Time of Disposition: 11:46 Disposition: Home, Self-Care 01 Condition: Good Clinical Impression: Cruz catheter problem Qualifiers: Encounter type: initial encounter Qualified Code(s): T83.9XXA - Unspecified complication of genitourinary prosthetic device, implant and graft, initial encounter - Discharge Information *PRESCRIPTION DRUG MONITORING PROGRAM REVIEWED*: No *COPY OF PRESCRIPTION DRUG MONITORING REPORT IN PATIENT JAMIN: No Referrals: Jb Garcia MD [Primary Care Provider] - Forms: ED Department Discharge Additional Instructions: You were evaluated in the ER today for your Cruz catheter. This was removed, if you do not pee within the next 8 to 12 hours, you will need to come back to the ER for insertion of another Cruz catheter. Please go home, increase your fluid intake, to see if this resolves some of your urinary retention. Please watch for signs of a bladder infection like pain with urination, urinary frequency, urgency. I still recommend that you follow-up with urology as time allows, for further evaluation of why you went into acute urinary retention. Please return to the ER at any time if symptoms change or worsen. Sepsis Event Note (ED) - Evaluation Sepsis Screening Result: No Definite Risk - Focused Exam Vital Signs: Vital Signs Temp Pulse Resp BP Pulse Ox 06/27/20 11:16 97.6 F 104 H 20 127/82 98
== END 2020-06-27 11:52 | disposition home or self-care (01) ==
LOC: JD.ED 10:52
DX: T83.83XA Hemorrhage due to genitourinary prosthetic devices, implants and grafts, initial encounter (principal); Z91.011 Allergy to milk products; Z87.891 Personal history of nicotine dependence
CPT/HCPCS: 99282; 99283